=== PATIENT | male | born 1970 | race African-American/Black ===

== ENCOUNTER 2018-10-22 10:43 | Emergency (ER) | payer MEDICAID ==
[~2018-10-22] VITALS: Ht 182.9 cm; Wt 53.0 kg
[~2018-10-22 10:43] MED LIST: ASPI-1393 PO; COR3 PO; ENAL5TAB75 PO; FERR-63 PO; OMEP20CA5 PO; SIMV20TA6 PO; SPIR25TA6 PO
[2018-10-22] MEDS ORDERED: ONDANSETRON HCL 4MG/2ML INJ IV STA (13:29)
[2018-10-22] MEDS ORDERED: KETOROLAC 30MG/ML VIAL IV STA (13:29)
[2018-10-22] MEDS ORDERED: SODIUM CHLORIDE 0.9% 1,000 ML IV ONE (13:29)
[2018-10-22] MEDS ORDERED: MORPHINE SULFATE 4 MG/ML CPJ (NOT FOR IM USE) IV STA (13:29)
[2018-10-22 14:09] LABS: BASOPHILS % 0.3 % (0.0-2.0); EOSINOPHILS % 6.3 % (0.0-5.0); HEMATOCRIT. 35.1 % (42.0-52.0); HEMOGLOBIN. 11.6 g/dL (14.0-18.0); LYMPHOCYTES % 33.7 % (20.0-50.0); MEAN CORPUSCULAR HEMOGLOBIN 28.9 pg (28.0-32.0); MEAN CORPUSCULAR VOLUME 87.7 fL (80.0-94.0); MEAN PLATELET VOLUME 9.3 fl (7.4-10.4); MONOCYTES % 8.4 % (2.0-8.0); NEUTROPHILS % 51.3 % (40.0-76.0); PLATELET 191 x1000/uL (130-400); RED CELL DISTRIBUTION WIDTH 14.6 % (11.6-14.6)
[2018-10-22 14:13] LABS: CHLORIDE 104 mEq/L (98-107)
[2018-10-22 14:16] LABS: PROTHROMBIN TIME 10.7 sec (9.6-11.0)
[2018-10-22] MEDS ORDERED: MORPHINE SULFATE 4 MG/ML CPJ (NOT FOR IM USE) IV ONE (17:15)
[2018-10-22 17:56] VITALS: BP 112/71
== END 2018-10-22 17:56 | disposition home or self-care (01) ==
LOC: ER 10:43
DX: R31.9 Hematuria, unspecified (principal); R10.9 Unspecified abdominal pain; I11.0 Hypertensive heart disease with heart failure; I50.9 Heart failure, unspecified; D64.9 Anemia, unspecified; F12.10 Cannabis abuse, uncomplicated; F17.210 Nicotine dependence, cigarettes, uncomplicated; Z87.442 Personal history of urinary calculi
CPT/HCPCS: 36415; 74176; 80053; 83690; 85025; 85610; 96374; 96375; 96376; 99284; 99406; J1885; J2270; J2405; J7030